=== PATIENT | male | born 1980 | race Caucasian/White ===

== ENCOUNTER 2023-05-13 06:52 | Emergency (ER) | payer OTHER, SELFPAY ==
[2023-05-13 06:56] VITALS: BP 149/105
--- NOTE | 2023-05-13 07:15 | ED.GENMED ---
History of Present Illness
General
Chief Complaint: Abdominal Pain
Time Seen by Provider: 05/13/23 07:15
Travel History
Have you had any contact with someone who has COVID-19?: No
Do you have any symptoms of coronavirus? Fever > 100 degrees, chills, cough, shortness of breath, sore throat, loss of taste or smell, muscle aches, or headache?: No
History of Present Illness
History of Present Illness:
HPI: Approximately 2 weeks ago, the patient had chills and myalgias and thought he had a flulike illness�he tested negative for COVID. He improved a few days later and then worsened over the last day or so. He has recurrence of chills and now has
diffuse abdominal discomfort with back discomfort along with loss of appetite. Symptoms were associated with nausea. He had minimal cough with no urinary symptoms. He is a smoker.
EXAM:
GENERAL: Well appearing in minimal distress
HEENT: Moist oral mucosa
CARDIOVASCULAR: No murmurs, normal heart rate, regular rhythm, No chest wall tenderness
PULMONARY: No respiratory distress, breath sounds are clear and equal
ABDOMEN: Soft with no peritoneal signs, minimal diffuse tenderness
NEUROLOGIC: Excellent strength all extremities, no coordination deficits
PSYCHIATRIC: Appropriate mental status, normal insight and judgement
EXTREMITIES: Nontender, no edema, moves all extremities equally
SKIN: No rash, no lesions
TIME OF INITIAL ENCOUNTER: 7:20 AM
NUMBER AND COMPLEXITY OF PROBLEMS ADDRESSED AT THE ENCOUNTER
� Chronic conditions affecting care: Denies any significant past medical history
� Acute Exacerbation and/or Progression of Chronic Illness: This is an acute problem
� Differential Diagnosis includes: Viral syndrome, pneumonia, bowel obstruction unlikely, appendicitis unlikely
AMOUNT AND/OR COMPLEXITY OF DATA TO BE REVIEWED AND ANALYZED
� I performed an independent evaluation of and my interpretation is:
EKG:
CT: CT imaging reviewed, normal appendix noted, no clear acute abnormality
X-rays: Chest x-ray negative
Laboratory Studies: (+) Influenza, white count normal, hemoglobin normal, chemistries unremarkable, COVID-negative
Other:
� Review of other/old records: I reviewed MRI of the C-spine from your 2018 that showed some small disc herniation
� Clinical information was obtained by an independent historian: I spoke to the at bedside
� Prescriptions/Medications Considered but not given: Consider Tamiflu however symptoms most recently started 3 days ago
� Further testing considered but not performed:
RISK OF COMPLICATIONS AND/OR MORBIDITY OR MORTALITY OF PATIENT MANAGEMENT
� Social determinants of health affecting care: Lives at home
� Discussion with other providers:
� Escalation of care including admission/observation vs risk of discharge considered: The patient has recurrence of chills for the second time in the past 2 weeks. Will check labs but also obtain CT imaging as he has abdominal
pain with loss of appetite. On reassessment at 9:30 AM, the patient feels markedly improved after IV fluids were given. Recommended omeprazole for small hiatal hernia but not sure if this is really the cause of his abdominal pain as his abdominal
pain is diffuse. Regardless he appears very comfortable on reassessment. Recommended 2-week course of PPI and GI follow-up.
Past History
Past History
ED Past Medical History: None
ED Past Surgical History: None
Social History
Tobacco: Smoker
Personal:
Living: with family
Employment: Not employed
Family History
Family History: Other (Noncontributory)
Phy Exam
Physical Exam
Physical Exam:
See HPI
Course
Orders/Labs/Results
Orders:
Orders
05/13/23 07:20
0.9% Sodium Chloride 1000 ml [Nss] 1,000 ml IV BOLUS
Ondansetron Injectable [Zofran] 4 mg IV NOW STA
05/13/23 07:21
CT Abd/pelvis W Iv Cont Urgent
Comment:
Reason For Exam: pain loss of appetite
CR Chest - 2 Views Urgent
Comment:
Reason For Exam: cough smoker chills
05/13/23 07:31
COVID-19 Antigen Urgent
Source: Nasal Swab
Complete Blood Count/With Diff Urgent
Comprehensive Metabolic Panel Urgent
Lipase Urgent
Influenza A+B Rapid Molecular Urgent
KARO Source: Nasal Swab
Specimen Description:
Abnormal Lab Results
05/13/23
07:31
MCH 31.3 H pg
(27.0-31.0)
Absolute Lymphs (auto) 0.9 L 10^3/uL
(1.2-3.4)
Absolute Monos (auto) 1.0 H 10^3/uL
(0.1-0.6)
Lymphocytes % 12.4 L %
(20.5-51.1)
Monocytes % 13.8 H %
(1.7-9.3)
Sodium 134 L mmol/L
(135-145)
BUN 8 L mg/dl
(9-20)
Glucose 122 H mg/dl
(70-99)
05/13/23 07:31
05/13/23 07:31
Vital Signs
Initial and Last Documented VS:
Initial Vital Signs
Temp Pulse Resp BP Pulse Ox
98.1 F 79 16 149/105 97
05/13/23 06:56 05/13/23 06:56 05/13/23 06:56 05/13/23 06:56 05/13/23 06:56
Last Documented Vital Signs
Temp Pulse Resp BP Pulse Ox
98.1 F 79 16 135/89 97
05/13/23 06:56 05/13/23 06:56 05/13/23 06:56 05/13/23 08:00 05/13/23 08:15
*Critical Care Note
Total Time (30-74mins, 75-104mins- exclusive of procedures): Not Applicable
ED Attending Note
-
Portions of this chart may have been created with voice recognition software.� Occasional wrong word or��sound alike� substitutions may have occurred due to the inherent limitations of voice recognition software.
Discharge Plan
Departure
Patient Disposition: Home (Routine Discharge)
Date of Disposition: 05/13/23
Time of Disposition: 09:29
Patient with high blood pressure during this ER visit?: Yes
Discharge Problem:
Influenza
Instructions: Flu, Adult (DC), Hiatal Hernia (DC), Abdominal Pain
Prescriptions:
No Action
penicillin V potassium 500 mg tablet
500 mg PO BID 10 Days Qty: 20 0RF
diclofenac sodium 75 mg tablet,delayed release (DR/EC)
75 mg PO BID Qty: 10 0RF
Referrals:
Marily Owens MD [Active] - Follow up in 2-3 days
Jna Gutierrez DO [Family Provider] -
Activity Restrictions/Additional Instructions:
You are positive for the flu. Basic blood work is otherwise unremarkable. COVID test is negative. Chest x-ray is clear. Radiologist sees a normal appendix but does show a small hiatal hernia�you could try a 2-week course of [id number]
omeprazole. I have also given you the contact information for local GI doctor.
Interventions
Interventions:
*Risk Screen - Suicide Last Done: 05/13/23 06:56
*General Assessment Last Done: 05/13/23 06:56
*Neglect/Abuse Screening Last Done: 05/13/23 06:56
*ED COVID-19 Vaccine History Last Done: 05/13/23 07:22
TM-Cjgmfo-Ifdqqvexui Assessment Last Done: 05/13/23 08:34
[2023-05-13 07:21] VITALS: BMI 28.8
[2023-05-13 07:39] VITALS: BP 133/95
[2023-05-13] MEDS: NSS 1000 IV (07:40)
[2023-05-13] MEDS: ZOFRAN 4 MG IV (07:40)
[2023-05-13 08:00] VITALS: BP 135/89
[2023-05-13 08:01] LABS: % Basophils 0.7 % (0-2); % Eosinophils 1.2 % (0-6); % Immature Granulocytes 0.3 % (0-0.5); % Lymphocytes 12.4 % (20.5-51.1); % Monocytes 13.8 % (1.7-9.3); % Neutrophils 71.6 % (42.2-75.2); Absolute Basophils 0.1 10^3/uL (0-0.2); Absolute Eosinophils 0.1 10^3/uL (0-0.7); Absolute Lymphocytes 0.9 10^3/uL (1.2-3.4); Absolute Neutrophils 4.9 10^3/uL (1.4-6.5); Hematocrit 42.7 % (39.0-52.0); Mean Corp Hgb Conc. 35.1 g/dL (33.0-37.0); Mean Corpuscular Hgb 31.3 pg (27.0-31.0); Mean Platelet Volume 10.3 fL (7.4-10.4); Nucleated Red Blood Cells % 0 % (-); Platelet Count 280 10^3/uL (130-400); Red Cell Dist. Width 12.2 % (11.5-14.5); White Blood Cell Count 6.9 10^3/uL (4.8-10.8)
[2023-05-13 08:15] LABS: COVID-19 Antigen Negative (Negative)
[2023-05-13 08:16] LABS: ALT (SGPT) 27 U/L (0-50); AST (SGOT) 22 U/L (17-59); Albumin 4.6 g/dl (3.5-5.0); Alkaline Phosphatase 98 U/L (38-126); Blood Urea Nitrogen 8 mg/dl (9-20); Calcium 9.1 mg/dl (8.4-10.2); Carbon Dioxide 23 mmol/L (22-30); Chloride 104 mmol/L (98-107); Estimated Creatinine Clearance > 125 ml/min; Glucose 122 mg/dl (70-99); Lipase 40 U/L (23-300); Potassium 4.4 mmol/L (3.5-5.1); Sodium 134 mmol/L (135-145); Total Bilirubin 0.7 mg/dl (0.2-1.3); Total Protein 7.5 g/dl (6.3-8.2); eGFR > 60.00
[2023-05-13 09:31] VITALS: BP 158/85
== END 2023-05-13 09:43 | disposition home or self-care (01) ==
LOC: EMR 06:52
PROVIDERS: EMERGENCY PHYSICIAN Emergency Medicine; FAMILY PHYSICIAN Family Medicine
DX: J10.1 Influenza due to other identified influenza virus with other respiratory manifestations (principal); R03.0 Elevated blood-pressure reading, without diagnosis of hypertension; F17.200 Nicotine dependence, unspecified, uncomplicated; Z11.52 Encounter for screening for COVID-19
CPT/HCPCS: 99285; 96374; 71046; 74177; 80053; 83690; 85025; 87502; 87811; Q9967

== ENCOUNTER 2023-05-22 15:57 | Emergency (ER) | payer OTHER, SELFPAY ==
[2023-05-22 16:11] VITALS: BP 144/100
[2023-05-22 16:35] LABS: % Basophils 0.5 % (0-2); % Eosinophils 3.3 % (0-6); % Lymphocytes 19.9 % (20.5-51.1); % Monocytes 6.9 % (1.7-9.3); % Neutrophils 68.4 % (42.2-75.2); Absolute Basophils 0.1 10^3/uL (0-0.2); Absolute Eosinophils 0.4 10^3/uL (0-0.7); Absolute Immature Granulocytes 0.1 10^3/uL (0-0.05); Absolute Lymphocytes 2.7 10^3/uL (1.2-3.4); Absolute Monocytes 0.9 10^3/uL (0.1-0.6); Absolute Neutrophils 9.3 10^3/uL (1.4-6.5); Hematocrit 40.3 % (39.0-52.0); Hemoglobin 15.1 g/dL (13.0-18.0); Mean Corp Hgb Conc. 37.5 g/dL (33.0-37.0); Mean Corpuscular Hgb 31.7 pg (27.0-31.0); Mean Corpuscular Volume 84.7 fL (80.0-94.0); Mean Platelet Volume 9.9 fL (7.4-10.4); Nucleated Red Blood Cells % 0 % (-); Platelet Count 383 10^3/uL (130-400); Red Blood Cell Count 4.76 10^6/uL (4.70-6.10); White Blood Cell Count 13.5 10^3/uL (4.8-10.8)
[2023-05-22 16:50] LABS: ALT (SGPT) 24 U/L (0-50); AST (SGOT) 19 U/L (17-59); Albumin 4.6 g/dl (3.5-5.0); Alkaline Phosphatase 102 U/L (38-126); Blood Urea Nitrogen 11 mg/dl (9-20); Calcium 9.6 mg/dl (8.4-10.2); Carbon Dioxide 24 mmol/L (22-30); Chloride 105 mmol/L (98-107); Glucose 105 mg/dl (70-99); Lipase 48 U/L (23-300); Potassium 4.5 mmol/L (3.5-5.1); Sodium 135 mmol/L (135-145); Total Bilirubin 0.7 mg/dl (0.2-1.3); Total Protein 7.5 g/dl (6.3-8.2); eGFR > 60.00
[2023-05-22] MEDS: TYLENOL 650 MG PO (17:49)
[2023-05-22] MEDS: BENTYL 20 MG PO (17:49)
[2023-05-22 17:51] VITALS: BP 148/89
--- NOTE | 2023-05-22 17:54 | ED.GENMED ---
History of Present Illness
General
Chief Complaint: Abdominal Symptoms
Source: patient, records, previous radiology exam and previous hospital records
Exam Limitations: none
Time Seen by Provider: 05/22/23 17:09
Nursing documentation reviewed up to this point in time: agreed with
Travel History
Have you had any contact with someone who has COVID-19?: No
Do you have any symptoms of coronavirus? Fever > 100 degrees, chills, cough, shortness of breath, sore throat, loss of taste or smell, muscle aches, or headache?: No
History of Present Illness
History of Present Illness:
43-year-old male limited past medical history smoker nondrinker no prior abdominal surgery diagnosed with influenza B 10 days ago had a CAT scan of his abdomen at that time, improved, was not a candidate for Tamiflu due to timing, eating and
drinking well lately later in the day yesterday and today has had intermittent abdominal cramping some loose stools no solid stool for couple days no vomiting no fevers, had some cough initially during the flu illness, none recently, urinating okay
had a full meal yesterday and this morning states he has crampy pain worse when he sits up better with rest
Past History
Past History
ED Past Medical History: None
ED Past Surgical History: None
Social History
Tobacco: Smoker
Alcohol: None
Drug: None
Personal:
Living: with family
Employment: Not employed
Family History
Family History: Other (Noncontributory)
Review of Systems
Review of Systems
All Other Systems: Not applicable
Constitutional: Reports no symptoms; Denies fever or fatigue
EENT: Reports no symptoms
Respiratory: Reports no symptoms
Cardiac: Reports no symptoms
ABD/GI: Reports abdominal pain, diarrhea and constipated
: Reports no symptoms
Musculoskeletal: Reports no symptoms
Skin: Reports no symptoms
Neurological: Reports no symptoms
Phy Exam
Physical Exam
Physical Exam:
Physical Exam
General: no apparent distress, not acutely ill
Neck: No jaundice
Heart: s1/s2 regular rate and rhythm, no murmur. equal radial pulses.
Lungs: no acute respiratory distress. clear bilaterally
Abdomen: Soft nontender no guarding or rebound
Neuro: alert and oriented. no focal neurological deficits
Skin: no rash
Psychiatric: well kept. interactive and cooperative
Extremities: no edema.
Course
Orders/Labs/Results
Orders:
Orders
05/22/23 16:22
Complete Blood Count/With Diff Urgent
Comprehensive Metabolic Panel Urgent
Lipase Urgent
05/22/23 17:08
Abdomen Xray - 1 View [CR Abdomen - 1 View] Urgent
Comment:
Reason For Exam: fos
05/22/23 17:38
Acetaminophen [Tylenol] 650 mg PO NOW STA
Dicyclomine [Bentyl] 20 mg PO NOW STA
Abnormal Lab Results
05/22/23
16:22
WBC 13.5 H 10^3/uL
(4.8-10.8)
MCH 31.7 H pg
(27.0-31.0)
MCHC 37.5 H g/dL
(33.0-37.0)
Abs Immat Gran (auto) 0.1 H 10^3/uL
(0-0.05)
Absolute Neuts (auto) 9.3 H 10^3/uL
(1.4-6.5)
Absolute Monos (auto) 0.9 H 10^3/uL
(0.1-0.6)
Immature Gran % 1.0 H %
(0-0.5)
Lymphocytes % 19.9 L %
(20.5-51.1)
Glucose 105 H mg/dl
(70-99)
05/22/23 16:22
05/22/23 16:22
Vital Signs
Initial and Last Documented VS:
Initial Vital Signs
Temp Pulse Resp BP Pulse Ox
98.2 F 88 18 144/100 99
05/22/23 16:11 05/22/23 16:11 05/22/23 16:11 05/22/23 16:11 05/22/23 16:11
Last Documented Vital Signs
Temp Pulse Resp BP Pulse Ox
98.2 F 81 16 148/89 99
05/22/23 16:11 05/22/23 17:51 05/22/23 17:51 05/22/23 17:51 05/22/23 17:51
MDM/Problems Addressed
Differential Diagnosis Includes:
Enteritis viral syndrome appendicitis colitis diverticulitis
MDM/Problems Addressed:
Abdominal pain loose stool constipation
*Radiology
Radiology exam reviewed: radiology read reviewed
*Pulse Oximetry
Patient hypoxic: no
*Critical Care Note
Total Time (30-74mins, 75-104mins- exclusive of procedures): Not Applicable
Update Note
Update Note:
Update patient appears well his abdomen is soft and nontender x-ray noted white count noted pain is only when he sits up, will try some Tylenol and Bentyl, will review his prior labs and CAT scan no clear indication for repeat cat scanning at this
time
6 PM, prior labs and CAT scan x-ray report noted white count is up today of uncertain significance
6:44 PM abdomen soft and nontender states he does get some intermittent cramps but none now, will discharge home on bland diet, Bentyl clearly instructed to return to the ER for worsening or constant pains
ED Attending Note
-
Portions of this chart may have been created with voice recognition software.� Occasional wrong word or��sound alike� substitutions may have occurred due to the inherent limitations of voice recognition software.
Discharge Plan
Departure
Patient Disposition: Home (Routine Discharge)
Date of Disposition: 05/22/23
Time of Disposition: 18:44
Patient with high blood pressure during this ER visit?: No
Condition: Good
Covid-19: Not Applicable
Discharge Problem:
Abdominal bloating with cramps
Instructions: Abdominal Pain
Prescriptions:
New
dicyclomine 20 mg tablet
20 mg PO QID PRN (Reason: abdominal cramps) Qty: 14 0RF
No Action
penicillin V potassium 500 mg tablet
500 mg PO BID 10 Days Qty: 20 0RF
diclofenac sodium 75 mg tablet,delayed release (DR/EC)
75 mg PO BID Qty: 10 0RF
Referrals:
Jan Gutierrez, [Family Provider] - Next open appointment
Activity Restrictions/Additional Instructions:
Return to the ER for worsening symptoms
Interventions
Interventions:
*Risk Screen - Suicide Last Done: 05/22/23 16:11
*General Assessment Last Done: 05/22/23 16:11
*Neglect/Abuse Screening Last Done: 05/22/23 16:11
ED- Fall Risk Assessment Last Done: 05/22/23 18:41
*ED COVID-19 Vaccine History Last Done: 05/22/23 17:03
VY-Ubyjcq-Mokiiqcwiw Assessment Last Done: 05/22/23 17:14
Discharge Date and Time
Print Language: SLOVENIAN
== END 2023-05-22 18:55 | disposition home or self-care (01) ==
LOC: EMR 15:57
PROVIDERS: Emergency Medicine; EMERGENCY PHYSICIAN Emergency Medicine; FAMILY PHYSICIAN Family Medicine
DX: R14.0 Abdominal distension (gaseous) (principal); R10.9 Unspecified abdominal pain; R19.7 Diarrhea, unspecified; F17.200 Nicotine dependence, unspecified, uncomplicated; R05.9 Cough, unspecified
CPT/HCPCS: 99284; 74018; 80053; 83690; 85025